=== PATIENT | female | born 1980 | race Caucasian/White ===

== ENCOUNTER 2018-03-31 07:20 | Outpatient (CLI) | payer MEDICARE, MEDICAID ==
[2018-03-31 12:40] LABS: BASOPHILS % (AUTO) 0.3 %; EOSINOPHILS # (AUTO) 0.1 10^3/uL (0.0-0.7); EOSINOPHILS % (AUTO) 1.4 %; LYMPHOCYTES # (AUTO) 1.7 10^3/uL (1.5-3.5); LYMPHOCYTES % (AUTO) 24.9 %; MEAN CORPUSCULAR HEMOGLOBIN 28.5 pg (27.0-31.0); MEAN CORPUSCULAR HGB CONC 32.9 g/dL (32.0-36.0); MEAN CORPUSCULAR VOLUME 86.7 fL (81.0-99.0); MEAN PLATELET VOLUME 9.2 fL (7.9-10.8); MONOCYTES # (AUTO) 0.6 10^3/uL (0.0-1.0); MONOCYTES % (AUTO) 8.7 %; NEUTROPHILS # (AUTO) 4.3 10^3/uL (1.5-6.6); NEUTROPHILS % (AUTO) 64.7 %; PLT - PLATELET COUNT 212 10^3/uL (130-450); RED BLOOD COUNT 4.19 10^6/uL (4.20-5.40); RED CELL DISTRIBUTION WIDTH 15.5 % (12.0-15.0); WHITE BLOOD COUNT 6.7 x10^3/uL (4.8-10.8)
[2018-03-31 12:57] LABS: ALBUMIN 3.4 g/dL (3.2-5.5); ALBUMIN/GLOBULIN RATIO 1.2 (1.0-2.2); ALKALINE PHOSPHATASE 38 IU/L (42-121); ALT ALANINE AMINOTRANSFERASE 18 IU/L (10-60); AST ASPARTATE AMINOTRANSFERASE 19 IU/L (10-42); BILIRUBIN,TOTAL 0.6 mg/dL (0.2-1.0); BUN - BLOOD UREA NITROGEN 12 mg/dL (6-20); CALCIUM 8.7 mg/dL (8.5-10.3); CARBON DIOXIDE - CO2 25 mmol/L (21-32); CHLORIDE 107 mmol/L (101-111); CHOL/HDL RATIO 2.6 (<4.4); CHOLESTEROL 173 mg/dL; CREATININE 0.8 mg/dL (0.4-1.0); GFR - MDRD 82 (>89); GLUCOSE 97 mg/dL (70-100); HDL CHOLESTEROL 67 mg/dL; SODIUM 138 mmol/L (135-145); TOTAL PROTEIN 6.3 g/dL (6.7-8.2)
[2018-03-31 13:16] LABS: LDL CHOLESTEROL,DIRECT 100 mg/dL; LDLD/HDL RATIO 1.5 (<4.4)
== END 2018-03-31 23:59 | disposition home or self-care (01) ==
LOC: LAB.N 07:20
PROVIDERS: ATTEND Nurse Practitioner Gerontology
DX: Z13.9 Encounter for screening, unspecified (principal); F19.10 Other psychoactive substance abuse, uncomplicated; K58.9 Irritable bowel syndrome, unspecified; F41.8 Other specified anxiety disorders
CPT/HCPCS: 36415; 80053; 80061; 83721; 84443; 85025

== ENCOUNTER 2018-04-22 16:55 | Emergency (ER) | payer MEDICARE, MEDICAID ==
[2018-04-22] MEDS ORDERED: HYDROcod/ACET 5/325 Prepack 4 PO STA (17:43)
[2018-04-22] MEDS ORDERED: CYCLOBENZAPRINE 10 MG TABLET PO STA (17:43)
--- NOTE | 2018-04-22 17:45 | ED Physician Documentation ---
PD HPI BACK PAIN - Stated complaint Stated Complaint: R SIDE PX - Chief complaint Chief Complaint: Back Pain - History obtained from History obtained from: Patient - History of Present Illness Timing - onset: Other (She has had right lower back pain that is worse with twisting and bending and sitting up for the last 5 days. There is no specific injury. No urinary complaints, no fever, weakness, numbness, tingling, saddle anesthesia, or incontinence. 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 - Present Medications Home Medications: Ambulatory Orders Medication Instructions Recorded Confirmed Cyclobenzaprine [Flexeril] 10 mg PO TID PRN #20 tablet 04/22/18 Hydrocodone/Acetaminophen 1 - 2 each PO Q6H PRN #14 tablet 04/22/18 [Hydrocodon-Acetaminophen 5-325] - Allergies Allergies/Adverse Reactions: Allergies Allergy/AdvReac Type Severity Reaction Status Date / Time No Known Drug Allergies Allergy Verified 04/22/18 17:03 - Social History Does the pt smoke?: No Smoking Status: Never smoker Does the pt drink ETOH?: No Does the pt have substance abuse?: No PD ED PE NORMAL - Vitals Vital signs reviewed: Yes - General General: Alert and oriented X 3, No acute distress - Back Back: No spinal TTP, Other (She has muscular tenderness of the right low back, no flank tenderness) - Extremities Extremities: Other (The patient has equal and normal Achilles and patellar reflexes bilaterally. Normal sensation in all areas of the legs. Patient denies saddle anesthesia. Normal strength in flexion-extension at the ankles, knees, and flexion of the hips.) Results - Vitals Vitals: Vital Signs - 24 hr 04/22/18 17:01 Temperature 36.5 C Heart Rate 70 Respiratory 20 Rate Blood Pressure 136/75 H O2 Saturation 98 Oxygen O2 Source Room air PD MEDICAL DECISION MAKING - ED course ED course: This patient has seemingly uncomplicated musculoskeletal back pain. The patient has no "red flags." Specifically denies IV drug use, fevers, incontinence, saddle anesthesia. Spinal epidural abscess was considered, given that the pa tient has no fever, is not diabetic, has no spinal tenderness, does not use IV drugs, and has no bilateral neurologic symptoms, the diagnosis of spinal epidural abscess is considered exceedingly unlikely. Departure - Departure Disposition: 01 Home, Self Care Clinical Impression: Back pain Qualifiers: Back pain location: low back pain Chronicity: acute Back pain laterality: right Sciatica presence: without sciatica Qualified Code(s): M54.5 - Low back pain Condition: Good Record reviewed to determine appropriate education?: Yes Instructions: ED Low Back Pain Injury Prescriptions: Cyclobenzaprine [Flexeril] 10 mg PO TID PRN #20 tablet PRN Reason: Spasms Hydrocodone/Acetaminophen [Hydrocodon-Acetaminophen 5-325] 1 - 2 each PO Q6H PRN #14 tablet PRN Reason: pain Comments: Call your doctor to arrange a follow-up appointment, make the next available appointment. In the interim, return anytime if worse or if new symptoms develop. Your blood pressure was elevated today on check into the emergency department. This does not mean that you have hypertension, it is a common phenomenon to come to the emergency department and have elevated blood pressure. I recommend that you see your primary care physician within the week to have it rechecked when you are feeling better. Do not drink or drive while taking narcotic pain medication. Note that many narcotic pain relievers also contain Tylenol/acetaminophen. Please ensure that your total dose of acetaminophen from all sources does not exceed 3 g (3000 mg) per day. You may get constipated while on this medication. Take a stool softener such as Colace twice a day while you are on it. Also add an [id number] laxative such as senna or MiraLAX on any day that you do not have a bowel movement. If you received a narcotic pain medication or sedative while in the emergency department, do not drive for the next 24 hours.
[2018-04-22 17:56] VITALS: BP 130/72
== END 2018-04-22 17:55 | disposition home or self-care (01) ==
LOC: ED 16:55
DX: M54.5 Low back pain (principal); R03.0 Elevated blood-pressure reading, without diagnosis of hypertension
CPT/HCPCS: 99283

== ENCOUNTER 2018-12-14 08:00 | Outpatient (CLI) | payer MEDICARE, MEDICAID ==
[2018-12-14 13:08] LABS: H. PYLORIS ANTIGEN STL NEGATIVE (Negative)
== END 2018-12-14 23:59 | disposition home or self-care (01) ==
LOC: LAB.R 08:00
PROVIDERS: ATTEND Family Medicine
DX: R19.7 Diarrhea, unspecified (principal)
CPT/HCPCS: 81599; 82274; 83630; 87045; 87046; 87177; 87209; 87329; 87338; 87493

== ENCOUNTER 2019-01-25 16:46 | Emergency (ER) | payer MEDICARE, MEDICAID ==
[2019-01-25] MEDS ORDERED: ONDANSETRON 4 MG/2 ML VIAL IVP STA (16:58)
[2019-01-25] MEDS ORDERED: KETOROLAC 30 MG/ML VIAL IVP STA (16:58)
--- NOTE | 2019-01-25 17:01 | ED Physician Documentation ---
PD HPI BACK PAIN - Stated complaint Stated Complaint: LOWER BACK PX - Chief complaint Chief Complaint: Back Pain - History obtained from History obtained from: Patient - History of Present Illness Timing - onset: Yesterday (Midday yesterday she fell, she does not know why she fell. She was not in pain when she fell. She says she did not get hurt in the fall. Subsequent to That though, she thinks from the motion of getting up she started developed severe mid low back pain in the middle. She denies weakness, numbness, tingling, saddle anesthesia, or incontinence. She said she had this once before, but she is very vague on the details of when that was or what the diagnosis was.) Review of Systems Ten Systems: 10 systems reviewed and negative Constitutional: denies: Fever, Chills GI: reports: Nausea. 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 - Present Medications Home Medications: Ambulatory Orders Medication Instructions Recorded Confirmed Cyclobenzaprine [Flexeril] 10 mg PO TID PRN #20 tablet 04/22/18 Hydrocodone/Acetaminophen 1 - 2 each PO Q6H PRN #14 tablet 04/22/18 [Hydrocodon-Acetaminophen 5-325] - Allergies Allergies/Adverse Reactions: Allergies Allergy/AdvReac Type Severity Reaction Status Date / Time No Known Drug Allergies Allergy Verified 04/22/18 17:03 - Social History Does the pt smoke?: No Smoking Status: Never smoker Does the pt drink ETOH?: No Does the pt have substance abuse?: No PD ED PE NORMAL - Vitals Vital signs reviewed: Yes - General General: Alert and oriented X 3, Other (She is pacing and appears uncomfortable) - HEENT HEENT: PERRL, EOMI - Neck Neck: Supple, no meningeal sign, No bony TTP - Cardiac Cardiac: RRR, No murmur - Respiratory Respiratory: No respiratory distress, Clear bilaterally - Abdomen Abdomen: Normal bowel sounds, Soft, Non tender - Back Back: Other (Tender to both flanks and the spine, it is poorly localized. No skin changes.) - Extremities Extremities: No edema, No calf tenderness / cord, Other (The patient has equal and normal Achilles and patellar reflexes bilaterally. Normal sensation in all areas of the legs. Patient denies saddle anesthesia. Normal strength in flexio n-extension at the ankles, knees, and flexion of the hips.) - Neuro Neuro: Alert and oriented X 3, Normal speech - Psych Psych: Other (She is histrionic) Results - Vitals Vitals: Vital Signs - 24 hr 01/25/19 01/25/19 01/25/19 16:52 17:00 17:30 Temperature 36.5 C Heart Rate 88 86 53 L Respiratory 18 22 20 Rate Blood Pressure 117/99 H 117/99 H 104/73 O2 Saturation 98 96 100 01/25/19 01/25/19 01/25/19 18:04 18:16 18:28 Temperature Heart Rate 54 L 50 L 51 L Respiratory 16 18 16 Rate Blood Pressure 108/56 L 111/76 112/73 O2 Saturation 99 97 97 01/25/19 01/25/19 01/25/19 19:16 19:20 21:00 Temperature Heart Rate 55 L 54 L Respiratory 15 19 Rate Blood Pressure 106/69 103/67 O2 Saturation 82 L 98 94 01/25/19 23:03 Temperature 36.7 C Heart Rate 52 L Respiratory 17 Rate Blood Pressure 111/68 O2 Saturation 97 Oxygen O2 Source Room air - Labs Labs: Laboratory Tests 01/25/19 01/25/19 01/25/19 17:20 17:20 20:03 WBC 13.1 H RBC 4.98 Hgb 13.7 Hct 43.8 MCV 88.0 MCH 27.5 MCHC 31.3 L RDW 14.3 Plt Count 270 MPV 11.2 H Neut # (Auto) 8.8 H Lymph # (Auto) 3.0 [place] # (Auto) 1.1 H Eos # (Auto) 0.1 Baso # (Auto) 0.1 Absolute Nucleated RBC 0.00 Nucleated RBC % 0.0 Sodium 139 Potassium 3.7 Chloride 106 Carbon Dioxide 23 Anion Gap 10.0 BUN 12 Creatinine 1.1 H Estimated GFR (MDRD) 56 L Glucose 76 Calcium 9.2 Total Bilirubin 0.4 AST 17 ALT 13 Alkaline Phosphatase 50 Total Protein 7.9 Albumin 3.9 Globulin 4.0 Albumin/Globulin Ratio 1.0 Lipase 34 Urine Color YELLOW Urine Clarity HAZY Urine pH 6.5 Ur Specific [place] 1.015 Urine Protein NEGATIVE Urine Glucose (UA) NEGATIVE Urine Ketones NEGATIVE Urine Occult Blood NEGATIVE Urine Nitrite POSITIVE H Urine Bilirubin NEGATIVE Urine Urobilinogen 0.2 (NORMAL) Ur Leukocyte Esterase TRACE H Urine RBC None Seen Urine WBC 4-5 Ur Squamous Epith Cells RARE Squamous Urine Bacteria Many H Ur Microscopic Review INDICATED Urine Culture Comments INDICATED Urine HCG, Qual NEGATIVE - Rads (name of study) CT A/P Radiology: EMP read contemporaneously (Gallstones or sludge, some degenerative changes of the spine,) PD MEDICAL DECISION MAKING - ED course ED course: 38-year-old woman presents with acute back pain episode. Notably, and concernedly she had difficulty urinating here and eventually had to be straight cathed with 750 mL out. Here she was unable to urinate which delayed her care a bit since we needed a test prior to imaging. It was found that she had a large bladder and could not urinate. The nurse straight cathed her and 750 mL came out. This of course and of itself is concerning in the setting back pain. Her imaging was negative. She does have signs of mild UTI on urinalysis but the clinical picture does not really fit to pyelonephritis. Mildly elevated white blood cell count. She was given Rocephin and Decadron. Given the urinary retention though, there is of course concern for cauda equina. Her neuro exam was otherwise normal though. We called [place] to see if we could transfer her there for urgent MRI, they were full. We subsequently called [facility], had to leave a message. Accepted by Dr Graham at 1105pm, blayne completed. Departure - Departure Disposition: [facility] DC/Xfer Clinical Impression: Urinary retention Back pain Qualifiers: Back pain location: low back pain Chronicity: acute Back pain laterality: midline Sciatica presence: without sciatica Qualified Code(s): M54.5 - Low back pain Urinary tract infection Qualifiers: Urinary tract infection type: site unspecified Hematuria presence: without hematuria Qualified Code(s): N39.0 - Urinary tract infection, site not specified Condition: Fair
[2019-01-25] MEDS ORDERED: IOVERSOL 320 100 ML VIAL IVP ONE (17:12)
[2019-01-25 17:33] LABS: BASOPHILS # (AUTO) 0.1 10^3/uL (0.0-0.1); BASOPHILS % (AUTO) 0.5 %; EOSINOPHILS # (AUTO) 0.1 10^3/uL (0.0-0.7); EOSINOPHILS % (AUTO) 0.8 %; HGB - HEMOGLOBIN 13.7 g/dL (12.0-16.0); LYMPHOCYTES % (AUTO) 22.8 %; MEAN CORPUSCULAR HEMOGLOBIN 27.5 pg (27.0-31.0); MEAN CORPUSCULAR HGB CONC 31.3 g/dL (32.0-36.0); MEAN PLATELET VOLUME 11.2 fL (7.9-10.8); MONOCYTES # (AUTO) 1.1 10^3/uL (0.0-1.0); MONOCYTES % (AUTO) 8.1 %; NEUTROPHILS # (AUTO) 8.8 10^3/uL (1.5-6.6); NEUTROPHILS % (AUTO) 67.2 %; PLT - PLATELET COUNT 270 10^3/uL (130-450); RED BLOOD COUNT 4.98 10^6/uL (4.20-5.40); RED CELL DISTRIBUTION WIDTH 14.3 % (12.0-15.0); WHITE BLOOD COUNT 13.1 x10^3/uL (4.8-10.8)
[2019-01-25] MEDS ORDERED: HYDROmorphone 1 MG/ML CARPUJECT IVP STA ×2 (17:40→18:18)
[2019-01-25 17:45] LABS: ALBUMIN 3.9 g/dL (3.2-5.5); BILIRUBIN,TOTAL 0.4 mg/dL (0.2-1.0); CALCIUM 9.2 mg/dL (8.5-10.3); CREATININE 1.1 mg/dL (0.4-1.0); TOTAL PROTEIN 7.9 g/dL (6.7-8.2)
[2019-01-25] MEDS ORDERED: SODIUM CHLORIDE 0.9% 1,000 ML IV ONE ×2 (18:18→20:33)
[2019-01-25 20:53] LABS: BILIRUBIN,URINE NEGATIVE (NEGATIVE); GLUCOSE, URINE (UA) NEGATIVE (NEGATIVE); KETONES,URINE (UA) NEGATIVE (NEGATIVE); LEUKOCYTE ESTERASE, URINE TRACE (NEGATIVE); NITRITE,URINE POSITIVE (NEGATIVE); OCCULT BLOOD,URINE NEGATIVE (NEGATIVE); PH,URINE 6.5 PH (5.0-7.5); PROTEIN,URINE NEGATIVE (NEGATIVE); UROBILINOGEN,URINE 0.2 (NORMAL) E.U./dL (NORMAL)
[2019-01-25 20:54] LABS: CLARITY,URINE HAZY (CLEAR)
[2019-01-25 20:56] LABS: HCG UR QUAL NEGATIVE
[2019-01-25 21:03] LABS: BACTERIA,URINE Many /HPF (None Seen); RBC,URINE None Seen /HPF (0-5); SQUAMOUS EPITHELIAL CELL,UR RARE Squamous (<= Few)
--- NOTE | 2019-01-25 21:31 | CT Report ---
Reason: back pain Procedure Date: 01/25/2019 Accession Number: [id number] / [id number] Procedure: CT - Abdomen/Pelvis WO CPT Code: FULL RESULT: EXAM: CT ABDOMEN AND PELVIS EXAM DATE: 01/25/2019 08:25 PM. CLINICAL HISTORY: Back pain. COMPARISONS: ABDOMEN/PELVIS W/ 06/30/2014 1:17 PM. TECHNIQUE: Routine helical CT imaging was performed through the abdomen and pelvis. IV contrast: No. Enteric contrast: No. Reconstructions: Coronal and sagittal. In accordance with CT protocol optimization, one or more of the following dose reduction techniques were utilized for this exam: automated exposure control, adjustment of mA and/or KV based on patient size, or use of iterative reconstructive technique. FINDINGS: Lung Bases: Unremarkable. Liver: Liver is normal in size and contour. Gallbladder/Bile Ducts: There is sludge or gallstones within the gallbladder. Gallbladder size is normal. No biliary dilatation. Spleen: Normal. Pancreas: Normal. Adrenal Glands: Normal. Kidneys: Normal. No masses or hydronephrosis. Peritoneal Cavity/Bowel: The bowel is normal in caliber. There is no transition zone. There is no abnormal fluid or gas collection. Negative for lymphadenopathy. The appendix is well visualized and normal. Pelvic Organs: Urinary bladder symptoms. Uterus and ovaries appear normal in size for age. Vasculature: No aneurysms or other significant abnormality. Bones: Lower sacrum and coccyx appears hypoplastic. There is mild to moderate chronic degenerative disk disease at L4-L5. Other: None. IMPRESSION: 1. No acute fracture. 2. No hemorrhage or localizing acute inflammatory process demonstrated. 3. Chronic hypoplastic/dysplastic bony pelvis. 4. Probable gallstones or sludge within the gallbladder RADIA
[2019-01-25] MEDS ORDERED: DEXAMETHASONE 10 MG/ML VIAL ONE ×2 (22:46→22:50)
[2019-01-25] MEDS ORDERED: cefTRIAXone 1 GM VIAL ONE (22:46)
[2019-01-25] MEDS ORDERED: CHERRY SYRUP 10 ML UDC PO ONE (22:46)
[2019-01-25] MEDS ORDERED: ALBUTEROL NEB 2.5 MG/3 ML INH ONE (23:08)
[2019-01-26 01:44] VITALS: BP 109/71
== END 2019-01-26 02:00 | disposition short-term general hospital (02) ==
LOC: ED 16:46
DX: M54.5 Low back pain (principal); R33.9 Retention of urine, unspecified; N39.0 Urinary tract infection, site not specified; R11.0 Nausea
CPT/HCPCS: 36415; 51798; 74176; 80053; 81001; 81025; 83690; 85025; 87077; 87086; 87181; 96361; 96374; 96375; 99284; 99285; A9270; J1170; 81003

== ENCOUNTER 2019-02-27 03:20 | Emergency (ER) | payer MEDICARE, MEDICAID ==
--- NOTE | 2019-02-27 03:24 | ED Physician Documentation ---
PD HPI BACK PAIN - Stated complaint Stated Complaint: BK PX - History obtained from History obtained from: Patient, Family - History of Present Illness Timing - onset: Yesterday Timing - details: Gradual onset, Constant, Waxing and waning Pain level max: 10 Pain level now: 10 Quality: Pain, Similar to prior episodes Associated symptoms: No: Fever, Weakness, Numbness, Incontinent of urine, Unable to urinate, Hematuria, Incontinent of stool Improves with: Rest Worsened by: Movement Similar symptoms before: Diagnosis (tethered cord syndrome) Recently seen: Emergency Dept (last month) - Additional information Additional information: c/o right LBP radiating to right hip and, to lesser extent, R>L posterior thighs. She has had this severe pain since yesterday morning, not responding to ibuprofen. However, she says she has had similar but less intense pain every day (constant) since being evaluated in this ED for back pain; at that time, she was transferred to [facility]) where she had MRI that had findings c/w tethered cord syndrome. Patient says the plan is to have this surgically addressed, but she is in the process of getting referral and arranging appointments. She says she was not prescribed any pain medication except lidoderm patches (which she could not afford) and has been using ibuprofen. 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 - Present Medications Home Medications: Ambulatory Orders Medication Instructions Recorded Confirmed Cyclobenzaprine [Flexeril] 10 mg PO TID PRN #20 tablet 04/22/18 Hydrocodone/Acetaminophen 1 - 2 each PO Q6H PRN #14 tablet 04/22/18 [Hydrocodon-Acetaminophen 5-325] Ondansetron HCl [Zofran] 4 mg PO Q6HR PRN #14 tablet 02/27/19 Oxycodone HCl/Acetaminophen 1 - 2 each PO Q6H PRN #14 tablet 02/27/19 [Percocet 5-325 mg Tablet] diazePAM [Valium] 5 - 10 mg PO TID PRN #15 tablet 02/27/19 - Allergies Allergies/Adverse Reactions: Allergies Allergy/AdvReac Type Severity Reaction Status Date / Time No Known Drug Allergies Allergy Verified 02/27/19 03:28 - Social History Does the pt smoke?: No Smoking Status: Never smoker Does the pt drink ETOH?: No Does the pt have substance abuse?: No PD ED PE NORMAL - Vitals Vital signs reviewed: Yes - General General: Alert and oriented X 3, Well developed/nourished, Other (waxing and waning degrees of obvious painful distress) - Cardiac Cardiac: No murmur - Respiratory Respiratory: No respiratory distress, Clear bilaterally - Abdomen Abdomen: Soft, Non tender - Back Back: No spinal TTP - Derm Derm: Normal color, Warm and dry - Extremities Extremities: No edema - Neuro Neuro: Alert and oriented X 3, meal room hand 2-12 intact, No motor deficit, No sensory deficit, Normal speech, Other (2+/4 DTR bilateral patellar, 5/5 bilateral dorsi/plantarflexion. LTS intact BLE) PD ED PE EXPANDED - Cardiac Cardiac: Tachy, Regular Rhythm Results - Vitals Vitals: Vital Signs - 24 hr 02/27/19 02/27/19 02/27/19 03:24 03:39 05:45 Temperature 36.2 C L Heart Rate 120 H 48 L Respiratory 22 12 Rate Blood Pressure 139/90 H 106/87 H O2 Saturation 100 94 02/27/19 02/27/19 06:17 06:25 Temperature 36.8 C Heart Rate 47 L Respiratory 18 Rate Blood Pressure 101/58 L O2 Saturation 96 Oxygen O2 Source Room air PD MEDICAL DECISION MAKING - ED course Complexity details: reviewed old records (records from [facility] faxed and reviewed (01/26/19 visit)), re-evaluated patient, considered differential, d/w patient ED course: after several doses of narcotic analgesics (dilaudid IV, followed by PO oxycodone), and IV valium and PO valium, patient eventually was at adequate level of pain relief for discharge. No elements of HPI or physical exam to suggest acute spinal cord impingement Departure - Departure Disposition: 01 Home, Self Care Clinical Impression: Tethered cord syndrome Condition: Good Instructions: ED Neck Back Pain General Follow-Up: Shayla Martinez ARNP [Primary Care Provider] - Prescriptions: Ondansetron HCl [Zofran] 4 mg PO Q6HR PRN #14 tablet PRN Reason: Nausea / Vomiting diazePAM [Valium] 5 - 10 mg PO TID PRN #15 tablet PRN Reason: Spasms Oxycodone HCl/Acetaminophen [Percocet 5-325 mg Tablet] 1 - 2 each PO Q6H PRN #14 tablet PRN Reason: pain Discharge Date/Time: 02/27/19 06:30
[2019-02-27] MEDS ORDERED: diazePAM INJ 5 MG/ML SYRINGE IVP STA (04:07)
[2019-02-27] MEDS ORDERED: HYDROmorphone 1 MG/ML CARPUJECT IVP STA ×2 (04:07→04:52)
[2019-02-27] MEDS ORDERED: ONDANSETRON 4 MG/2 ML VIAL IVP STA (04:52)
[2019-02-27] MEDS ORDERED: oxyCODONE 5 MG TABLET PO STA (05:27)
[2019-02-27] MEDS ORDERED: diazePAM 5 MG TABLET PO STA (05:27)
[2019-02-27] MEDS ORDERED: oxyCODONE/ACET 5/325 Prepack 4 PO STA (06:07)
[2019-02-27 06:17] VITALS: BP 101/58
== END 2019-02-27 06:30 | disposition home or self-care (01) ==
LOC: ED 03:20
DX: Q06.8 Other specified congenital malformations of spinal cord (principal)
CPT/HCPCS: 96374; 96375; 96376; 99284; A9270; J1170

== ENCOUNTER 2019-03-05 02:29 | Emergency (ER) | payer MEDICARE, MEDICAID ==
--- NOTE | 2019-03-05 03:50 | ED Physician Documentation ---
PD HPI BACK PAIN - Stated complaint Stated Complaint: BK PX/LEG PX - Chief complaint Chief Complaint: Back Pain - History obtained from History obtained from: Patient - History of Present Illness Timing - onset: Chronic Timing - details: Gradual onset, Intermittant, Waxing and waning Pain level max: 10 Pain level now: 10 Location: Lower, Right, Left Quality: Pain, Similar to prior episodes Associated symptoms: No: Fever, Weakness Improves with: Rest, Position Worsened by: Movement, Palpation Contributing factors: Out of meds Similar symptoms before: Diagnosis (tehthered cord syndrome) Recently seen: Not recently seen - Additional information Additional information: T+R from this ED 1 week ago for same, c/o low back pain. has tethered cord syndrome and this was diagnosed by MRI last month. she is to have surgery for this, but is having difficulty getting neurosurgeon consult. has appointment to see PMD in 1-2 weeks to obtain referral. she has run out if the prescriptions provided last [facility] ED visit. Review of Systems Constitutional: reports: Reviewed and negative : denies: Dysuria, Frequency, Unable to Void, Incontinent Musculoskeletal: reports: Back pain. 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 - Present Medications Home Medications: Ambulatory Orders Medication Instructions Recorded Confirmed Cyclobenzaprine [Flexeril] 10 mg PO TID PRN #20 tablet 04/22/18 Hydrocodone/Acetaminophen 1 - 2 each PO Q6H PRN #14 tablet 04/22/18 [Hydrocodon-Acetaminophen 5-325] Ondansetron HCl [Zofran] 4 mg PO Q6HR PRN #14 tablet 02/27/19 Oxycodone HCl/Acetaminophen 1 - 2 each PO Q6H PRN #14 tablet 02/27/19 [Percocet 5-325 mg Tablet] diazePAM [Valium] 5 - 10 mg PO TID PRN #15 tablet 02/27/19 Ondansetron Odt [Zofran] 4 mg TL Q6H PRN #10 tablet 03/05/19 diazePAM [Valium] 5 - 10 mg PO TID PRN #15 tablet 03/05/19 oxyCODONE [Roxicodone] 1 - 2 tab PO Q6H PRN #20 tablet 03/05/19 - Allergies Allergies/Adverse Reactions: Allergies Allergy/AdvReac Type Severity Reaction Status Date / Time No Known Drug Allergies Allergy Verified 03/05/19 02:48 - Social History Does the pt smoke?: No Smoking Status: Never smoker Does the pt drink ETOH?: No Does the pt have substance abuse?: No - Immunizations Immunizations are current?: Yes - POLST Patient has POLST: No PD ED PE NORMAL - Vitals Vital signs reviewed: Yes - General General: Alert and oriented X 3, Well developed/nourished, Other (waxing and waning painful distress) - HEENT HEENT: Moist mucous membranes - Neck Neck: Supple, no meningeal sign - Cardiac Cardiac: RRR - Abdomen Abdomen: Soft, Non tender - Extremities Extremities: No tenderness to palpate, Normal ROM s pain, No edema - Neuro Neuro: Alert and oriented X 3, manager managed backup services 2-12 intact, No motor deficit, No sensory deficit, Normal speech, Other (2+/4 patellar DTR. LTS intact BLE) Results - Vitals Vitals: Oxygen O2 Source Room air PD MEDICAL DECISION MAKING - ED course Complexity details: reviewed old records, considered differential, d/w patient, d/w family Departure - Departure Disposition: 01 Home, Self Care Clinical Impression: Tethered cord Condition: Good Instructions: ED Neck Back Pain General Follow-Up: Shayla Martinez ARNP [Primary Care Provider] - (Thursday as scheduled) Prescriptions: diazePAM [Valium] 5 - 10 mg PO TID PRN #15 tablet PRN Reason: Spasms Ondansetron Odt [Zofran] 4 mg TL Q6H PRN #10 tablet PRN Reason: Nausea / Vomiting oxyCODONE [Roxicodone] 1 - 2 tab PO Q6H PRN #20 tablet PRN Reason: Pain Discharge Date/Time: 03/05/19 05:27
[2019-03-05] MEDS ORDERED: HYDROmorphone 1 MG/ML CARPUJECT IM STA (04:08)
[2019-03-05] MEDS ORDERED: diazePAM 5 MG TABLET PO STA ×2 (04:08→05:14)
[2019-03-05] MEDS ORDERED: ONDANSETRON ODT 4 MG TABLET TL STA (04:08)
[2019-03-05] MEDS ORDERED: oxyCODONE 5 MG TABLET PO STA (05:14)
[2019-03-05 05:29] VITALS: BP 106/70
== END 2019-03-05 05:27 | disposition home or self-care (01) ==
LOC: ED 02:29
DX: Q06.8 Other specified congenital malformations of spinal cord (principal)
CPT/HCPCS: 96372; 99283; 99284; A9270; J1170; Q0162

== ENCOUNTER 2020-04-23 08:00 | Outpatient (CLI) | payer MEDICARE, MEDICAID ==
[2020-04-23 12:03] LABS: BASOPHILS % (AUTO) 0.5 %; EOSINOPHILS # (AUTO) 0.1 10^3/uL (0.0-0.7); EOSINOPHILS % (AUTO) 1.8 %; HGB - HEMOGLOBIN 11.4 g/dL (12.0-16.0); LYMPHOCYTES # (AUTO) 1.7 10^3/uL (1.5-3.5); LYMPHOCYTES % (AUTO) 27.5 %; MEAN CORPUSCULAR HEMOGLOBIN 23.4 pg (27.0-31.0); MEAN CORPUSCULAR HGB CONC 28.9 g/dL (32.0-36.0); MEAN CORPUSCULAR VOLUME 80.7 fL (81.0-99.0); MEAN PLATELET VOLUME 10.8 fL (7.9-10.8); MONOCYTES # (AUTO) 0.5 10^3/uL (0.0-1.0); MONOCYTES % (AUTO) 7.7 %; NEUTROPHILS # (AUTO) 3.7 10^3/uL (1.5-6.6); NEUTROPHILS % (AUTO) 62.3 %; PLT - PLATELET COUNT 271 10^3/uL (130-450); RED BLOOD COUNT 4.88 10^6/uL (4.20-5.40); RED CELL DISTRIBUTION WIDTH 16.5 % (12.0-15.0)
[2020-04-23 12:25] LABS: PLATELET ESTIMATE, MANUAL NORMAL (130-450,000) (NORMAL); PLATELET MORPHOLOGY NORMAL APPEARANCE (NORMAL); RBC MORPHOLOGY (MULTIPLE) NORMAL APPEARANCE (NORMAL)
[2020-04-23 12:35] LABS: ALBUMIN 3.6 g/dL (3.2-5.5); ALKALINE PHOSPHATASE 65 IU/L (42-121); ALT ALANINE AMINOTRANSFERASE 26 IU/L (10-60); AST ASPARTATE AMINOTRANSFERASE 24 IU/L (10-42); BILIRUBIN,TOTAL 0.5 mg/dL (0.2-1.0); BUN - BLOOD UREA NITROGEN 11 mg/dL (6-20); CALCIUM 8.6 mg/dL (8.5-10.3); CARBON DIOXIDE - CO2 24 mmol/L (21-32); CHLORIDE 104 mmol/L (101-111); CHOL/HDL RATIO 4.5 (<4.4); CHOLESTEROL 183 mg/dL; CREATININE 0.9 mg/dL (0.4-1.0); GLUCOSE 107 mg/dL (70-100); HDL CHOLESTEROL 41 mg/dL; LDL CHOLESTEROL,CALCULATED 120 mg/dL; LDL/HDL RATIO 2.9 (<4.4); SODIUM 137 mmol/L (135-145); TOTAL PROTEIN 7.1 g/dL (6.7-8.2); VLDL CHOLESTEROL 22 mg/dL
== END 2020-04-23 23:59 | disposition home or self-care (01) ==
LOC: LAB.WCP 08:00
PROVIDERS: ATTEND Nurse Practitioner Family
DX: Z00.00 Encounter for general adult medical examination without abnormal findings (principal)
CPT/HCPCS: 36415; 80053; 80061; 83721; 84443; 85025

== ENCOUNTER 2020-04-25 11:10 | Outpatient (CLI) | payer MEDICARE, MEDICAID ==
[2020-04-25 18:24] LABS: % IRON SATURATION 6 % (20-50); IRON 25 ug/dL (28-170); TOTAL IRON BINDING CAPACITY 389 ug/dL (250-450); TRANSFERRIN 278 mg/dL (192-382)
== END 2020-04-25 23:59 | disposition home or self-care (01) ==
LOC: LAB.WCP 11:10
PROVIDERS: ATTEND Nurse Practitioner Family
DX: D64.9 Anemia, unspecified (principal)
CPT/HCPCS: 36415; 82728; 83540; 84466

== ENCOUNTER 2020-06-06 08:00 | Outpatient (CLI) | payer MEDICARE, MEDICAID ==
[2020-06-06 13:15] LABS: ABSOLUTE RETICS # AUTO 0.139 10^6/uL (0.020-0.110); BASOPHILS % (AUTO) 0.5 %; EOSINOPHILS # (AUTO) 0.1 10^3/uL (0.0-0.7); EOSINOPHILS % (AUTO) 1.5 %; HGB - HEMOGLOBIN 11.4 g/dL (12.0-16.0); LYMPHOCYTES # (AUTO) 1.9 10^3/uL (1.5-3.5); LYMPHOCYTES % (AUTO) 26.4 %; MEAN CORPUSCULAR HEMOGLOBIN 23.9 pg (27.0-31.0); MEAN CORPUSCULAR VOLUME 82.4 fL (81.0-99.0); MONOCYTES # (AUTO) 0.6 10^3/uL (0.0-1.0); MONOCYTES % (AUTO) 7.9 %; NEUTROPHILS # (AUTO) 4.6 10^3/uL (1.5-6.6); NEUTROPHILS % (AUTO) 63.3 %; PLT - PLATELET COUNT 283 10^3/uL (130-450); RED BLOOD COUNT 4.77 10^6/uL (4.20-5.40); RED CELL DISTRIBUTION WIDTH 17.1 % (12.0-15.0); WHITE BLOOD COUNT 7.3 x10^3/uL (4.8-10.8)
[2020-06-06 13:54] LABS: % IRON SATURATION 29 % (20-50); IRON 116 ug/dL (28-170); TOTAL IRON BINDING CAPACITY 406 ug/dL (250-450); TRANSFERRIN 290 mg/dL (192-382)
== END 2020-06-06 23:59 ==
LOC: LAB.WCP 08:00
PROVIDERS: ATTEND Nurse Practitioner Family
DX: D50.9 Iron deficiency anemia, unspecified (principal)
CPT/HCPCS: 36415; 83540; 84466; 85025; 85045

== ENCOUNTER 2021-03-25 13:48 | Outpatient (CLI) | payer MEDICARE, MEDICAID ==
[2021-03-25 18:24] LABS: BILIRUBIN,URINE NEGATIVE (NEGATIVE); GLUCOSE, URINE (UA) NEGATIVE (NEGATIVE); KETONES,URINE (UA) NEGATIVE (NEGATIVE); LEUKOCYTE ESTERASE, URINE SMALL (NEGATIVE); NITRITE,URINE POSITIVE (NEGATIVE); OCCULT BLOOD,URINE NEGATIVE (NEGATIVE); PH,URINE 7.5 PH (5.0-7.5); PROTEIN,URINE NEGATIVE (NEGATIVE); UROBILINOGEN,URINE 0.2 (NORMAL) E.U./dL (NORMAL)
[2021-03-25 18:26] LABS: CLARITY,URINE HAZY (CLEAR)
[2021-03-25 18:37] LABS: BASOPHILS # (AUTO) 0.1 10^3/uL (0.0-0.1); BASOPHILS % (AUTO) 0.7 %; EOSINOPHILS # (AUTO) 0.2 10^3/uL (0.0-0.7); EOSINOPHILS % (AUTO) 2.7 %; HCT - HEMATOCRIT 42.1 % (37.0-47.0); HGB - HEMOGLOBIN 12.9 g/dL (12.0-16.0); LYMPHOCYTES % (AUTO) 28.4 %; MEAN CORPUSCULAR HEMOGLOBIN 26.2 pg (27.0-31.0); MEAN CORPUSCULAR HGB CONC 30.6 g/dL (32.0-36.0); MEAN CORPUSCULAR VOLUME 85.4 fL (81.0-99.0); MEAN PLATELET VOLUME 10.9 fL (7.9-10.8); MONOCYTES # (AUTO) 0.6 10^3/uL (0.0-1.0); NEUTROPHILS # (AUTO) 4.2 10^3/uL (1.5-6.6); NEUTROPHILS % (AUTO) 59.9 %; PLT - PLATELET COUNT 291 10^3/uL (130-450); RED BLOOD COUNT 4.93 10^6/uL (4.20-5.40); RED CELL DISTRIBUTION WIDTH 15.5 % (12.0-15.0)
[2021-03-25 18:44] LABS: % IRON SATURATION 26 % (20-50); ALBUMIN/GLOBULIN RATIO 1.2 (1.0-2.2); ALKALINE PHOSPHATASE 60 IU/L (42-121); ALT ALANINE AMINOTRANSFERASE 37 IU/L (10-60); AST ASPARTATE AMINOTRANSFERASE 40 IU/L (10-42); BILIRUBIN,TOTAL 0.4 mg/dL (0.2-1.0); BUN - BLOOD UREA NITROGEN 12 mg/dL (6-20); CALCIUM 8.9 mg/dL (8.5-10.3); CARBON DIOXIDE - CO2 24 mmol/L (21-32); CHLORIDE 104 mmol/L (101-111); CHOL/HDL RATIO 4.2 (<4.4); CHOLESTEROL 202 mg/dL; CREATININE 0.9 mg/dL (0.4-1.0); GFR - MDRD 70 (>89); GLUCOSE 107 mg/dL (70-100); HDL CHOLESTEROL 48 mg/dL; IRON 99 ug/dL (28-170); LDL CHOLESTEROL,CALCULATED 124 mg/dL; LDL/HDL RATIO 2.6 (<4.4); POTASSIUM 3.9 mmol/L (3.5-5.0); SODIUM 139 mmol/L (135-145); TOTAL IRON BINDING CAPACITY 381 ug/dL (250-450); TOTAL PROTEIN 7.3 g/dL (6.7-8.2); TRANSFERRIN 272 mg/dL (192-382); TRIGLYCERIDES 149 mg/dL; VLDL CHOLESTEROL 30 mg/dL
[2021-03-25 18:50] LABS: THYROID STIMULATING HORMONE 1.17 uIU/mL (0.34-5.60)
[2021-03-25 18:56] LABS: FERRITIN 26.8 ng/mL (11.0-306.8)
[2021-03-25 18:57] LABS: BACTERIA,URINE Many /HPF (None Seen); RBC,URINE 0-5 /HPF (0-5); SQUAMOUS EPITHELIAL CELL,UR NONE SEEN (<= Few)
[2021-03-25 20:33] LABS: ESTIMATED AVERAGE GLUCOSE 111 mg/dL (70-100); HEMOGLOBIN A1c% 5.5 % (4.27-6.07)
== END 2021-03-25 23:59 | disposition home or self-care (01) ==
LOC: LAB.WCP 13:48
PROVIDERS: ATTEND Nurse Practitioner
DX: E66.9 Obesity, unspecified (principal); R53.83 Other fatigue; D64.9 Anemia, unspecified; R19.7 Diarrhea, unspecified
CPT/HCPCS: 36415; 80053; 80061; 81001; 82728; 83036; 83516; 83540; 83721; 84443; 84466; 85025; 87086

== ENCOUNTER 2022-10-15 18:25 | Outpatient (CLI) | payer MEDICARE, MEDICAID ==
--- NOTE | 2022-10-16 12:36 | Ultrasound Report ---
PROCEDURE: Pelvic w/Transvaginal INDICATIONS: ABNORMAL UTERINE BLEEDING TECHNIQUE: Real-time scanning was performed of the pelvic organs, with image documentation. Additional endovagi nal scanning was necessary due to incomplete visualization of the adnexal and endometrial structures by transabdominal scanning. COMPARISON: None. FINDINGS: Uterus: Uterus is anteverted and normal in size at 9 x 5 x 5.3 cm. The myometrium is homogeneous. The endometrium measures 9 mm in combined thickness. Possible subserosal fibroid measuring 1.2 cm. Ovaries: The right ovary measures 2.9 x 1.8 x 3.6 cm, with a calculated ovarian volume of 10 cc. Les s than 12 follicles. Left ovary not visualized. Other: No pathologic free abdominal or pelvic fluid. IMPRESSION: Endometrial measures 9 mm, within normal limits for age. Normal sonographic appearance of the right ovary. Left ovary not visualized. Reviewed by: Hollis Melvin on 10/16/2022 12:35 PM PDT Approved by: Hollis Melvin on 10/16/2022 12:35 PM PDT Station ID: [id number]
== END 2022-10-15 18:26 | disposition home or self-care (01) ==
LOC: DI 18:25
PROVIDERS: ATTEND Obstetrics & Gynecology
DX: N93.9 Abnormal uterine and vaginal bleeding, unspecified (principal)

== ENCOUNTER 2022-11-05 08:00 | Outpatient (CLI) | payer MEDICARE, MEDICAID | END 2022-11-05 23:59 | disposition home or self-care (01) | LOC: LAB.WC 08:00 | PROVIDERS: ATTEND Obstetrics & Gynecology | DX: N93.9 Abnormal uterine and vaginal bleeding, unspecified (principal) ==

== ENCOUNTER 2023-09-19 10:36 | Outpatient (CLI) | payer MEDICARE, MEDICAID ==
[2023-09-19 11:06] LABS: ALBUMIN 3.9 g/dL (3.2-5.5); ALBUMIN/GLOBULIN RATIO 1.2 (1.0-2.2); ALKALINE PHOSPHATASE 65 IU/L (42-121); ALT ALANINE AMINOTRANSFERASE 48 IU/L (10-60); AST ASPARTATE AMINOTRANSFERASE 57 IU/L (10-42); BILIRUBIN,TOTAL 0.5 mg/dL (0.2-1.0); BUN - BLOOD UREA NITROGEN 11 mg/dL (6-20); CALCIUM 9.1 mg/dL (8.5-10.3); CARBON DIOXIDE - CO2 25 mmol/L (21-32); CHLORIDE 105 mmol/L (101-111); CHOL/HDL RATIO 3.4 (<4.4); CHOLESTEROL 173 mg/dL; CREATININE 0.8 mg/dL (0.6-1.3); GFR - MDRD 79 (>89); GLUCOSE 111 mg/dL (74-104); HDL CHOLESTEROL 51 mg/dL; LDL CHOLESTEROL,CALCULATED 103 mg/dL; POTASSIUM 3.8 mmol/L (3.5-4.5); SODIUM 137 mmol/L (135-145); TOTAL PROTEIN 7.2 g/dL (6.4-8.9); TRIGLYCERIDES 94 mg/dL (48-352); VLDL CHOLESTEROL 19 mg/dL
[2023-09-19 13:26] LABS: ESTIMATED AVERAGE GLUCOSE 131 mg/dL (70-100); HEMOGLOBIN A1c% 6.2 % (4.27-6.07)
== END 2023-09-19 10:37 | disposition home or self-care (01) ==
LOC: LAB 10:36
PROVIDERS: ATTEND Nurse Practitioner Psychiatric/Mental Health
DX: F33.2 Major depressive disorder, recurrent severe without psychotic features (principal); F43.10 Post-traumatic stress disorder, unspecified
CPT/HCPCS: 36415; 80053; 80061; 83036; 83721